=== PATIENT | female | born 1940 | race Caucasian/White ===

== ENCOUNTER 2017-07-18 16:38 | Inpatient (IN) | payer OTHER, MEDICARE ==
[2017-07-18] VITALS (11 sets, daily range): BP systolic 118–136; BP diastolic 58–85; PULSE 94–105; RESP 16–36; TEMP 98.3–98.7; O2SAT 88–100
[~2017-07-18] VITALS: Ht 162.6 cm; Wt 77.2 kg
[~2017-07-18 16:38] MED LIST: AMLO5TAB22 PO; AZIT250T74 PO; DUONI INH; LISI-363 PO; PRED10 PO; PROT40TA PO; SYMB80AE INH; Z.0.OXYGENDME NC
--- NOTE | 2017-07-18 16:44 | PD ---
HPI Chief Complaint: Respiratory Distress Time Seen by Provider: 16:44 Travel History International Travel<30 days: No Contact w/Intl Traveler<30days: No Traveled to known affect area: No History of Present Illness HPI 77-year-old female came to the emergency room with history of shortness of breath. Patient was in respiratory distress and was unable to give any significant history. Her saturation in triage was 86% on room air. Patient denied of any chest pain. She was tachycardic. When she was put on 100% nonrebreather oxygen was 98%. [facility] Past Medical History Narrative Medical List of her past medical, surgical, social and family history is reviewed from the nursing note. Arthritis: Yes Asthma: No Heart Rhythm Problems: No Cancer: No Cardiovascular Problems: Yes High Cholesterol: No Chest Pain: No Congestive Heart Failure: No COPD: Yes Diminished Hearing: No Endocrine: No Genitourinary: No Hypertension: Yes Immune Disorder: No Musculoskeletal: Yes Neurologic: No Psychiatric: No Reproductive: No Respiratory: Yes Sleep Apnea: Yes Menopausal: Yes Past Surgical History Abdominal Surgery: No Cardiac Surgery: No Ear Surgery: No Endocrine Surgery: No Eye Surgery: No Genitourinary Surgery: No Gynecologic Surgery: Yes (TUBAL IGATION) Oral Surgery: No Thoracic Surgery: No Social History Alcohol Use: No Tobacco Use: Yes Substance Use: No Allergies-Medications (Allergen,Severity, Reaction): Coded Allergies: No Known Allergies (Unverified Adverse Reaction, Unknown, 07/18/17) Comments No known drug allergies. Reported Meds & Prescriptions Reported Meds & Active Scripts Active Reported [O2] 2 Liter EACH NARE CONTINUOUS Symbicort Inh (Budesonide/Formoterol Fumarate) 160-4.5 Mcg/Act Aero 2 Puff INH Q12HR Ventolin Hfa 18 GM Inh (Albuterol Sulfate) 90 Mcg/Act Aer 2 Puff INH Q4H PRN Amlodipine (Amlodipine Besylate) 5 Mg Tab 5 Mg PO DAILY Lisinopril 20 Mg Tab 20 Mg PO DAILY Lasix (Furosemide) 20 Mg Tab 10 Mg PO DAILY Albuterol Neb (Albuterol Sulfate) 2.5 Mg/0.5 Ml Neb 2.5 Mg NEB Q6HR NEB Note: The Albuterol Sulfate Inhalation Solution is concentrated and must be diluted. Read complete instructions carefully before using. Narrative Medication List of her home medications reviewed from the nursing note. Review of Systems Except as stated in HPI: all other systems reviewed are Neg Respiratory: Positive: Shortness of Breath Physical Exam Narrative GENERAL: Awake, alert, moderate to significant respiratory distress SKIN: Focused skin assessment warm/dry. HEAD: Atraumatic. Normocephalic. EYES: Pupils equal and round. No scleral icterus. No injection or drainage. ENT: No nasal bleeding or discharge. Mucous membranes pink and moist. NECK: Trachea midline. No JVD. CARDIOVASCULAR: Regular rate and rhythm. No murmur appreciated. RESPIRATORY: Diminished air entry bilaterally, accessory muscles used GASTROINTESTINAL: Abdomen soft, non-tender, nondistended. Hepatic and splenic margins not palpable. MUSCULOSKELETAL: No obvious deformities. No clubbing. No cyanosis. 2+ pedal edema NEUROLOGICAL: Awake and alert. No obvious cranial nerve deficits. Motor grossly within normal limits. Normal speech. PSYCHIATRIC: Appropriate mood and affect; insight and judgment normal. Data Data Last Documented VS Vital Signs Date Time Temp Pulse Resp B/P (MAP) Pulse Ox O2 Delivery O2 Flow Rate FiO2 07/18/17 17:30 99 30 07/18/17 17:29 BiPAP 07/18/17 17:20 103 24 120/85 (97) 07/18/17 16:45 2.00 07/18/17 16:45 98.3 Orders Orders Complete Blood Count With Diff (07/18/17 16:47) Basic Metabolic Panel (Bmp) (07/18/17 16:47) B-Type Natriuretic Peptide (07/18/17 16:47) Prothrombin Time / Inr (Pt) (07/18/17 16:47) Ckmb (Isoenzyme) Profile (07/18/17 16:47) Troponin I (07/18/17 16:47) Arterial Blood Gas (Abg) (07/18/17 16:47) Urinalysis - C+S If Indicated (07/18/17 16:47) Blood Culture (07/18/17 16:47) Iv Access Insert/Monitor (07/18/17 16:47) Ecg Monitoring (07/18/17 16:47) Oximetry (07/18/17 16:47) Oxygen Administration (07/18/17 16:47) Chest, Single Ap (07/18/17 16:47) Sodium Chloride 0.9% Flush (Ns Flush) (07/18/17 17:00) Albuterol-Ipratropium Neb (Duoneb Neb) (07/18/17 17:00) Furosemide Inj (Lasix Inj) (07/18/17 17:00) Resp Bipap / Cpap Non Invas Vt (07/18/17 16:47) CKMB (07/18/17 16:45) CKMB% (07/18/17 16:45) Methylprednisolone So Succ Inj (Solumedr (07/18/17 18:00) Albuterol Neb (Albuterol Neb) (07/18/17 18:00) Admit Order (Ed Use Only) (07/18/17 17:56) Labs Laboratory Tests Test 07/18/17 16:45 07/18/17 17:20 07/18/17 17:58 White Blood Count 8.3 TH/MM3 Red Blood Count 3.85 MIL/MM3 Hemoglobin 11.0 GM/DL Hematocrit 34.5 % Mean Corpuscular Volume 89.7 FL Mean Corpuscular Hemoglobin 28.5 PG Mean Corpuscular Hemoglobin Concent 31.8 % Red Cell Distribution Width 13.1 % Platelet Count 410 TH/MM3 Mean Platelet Volume 7.5 FL Neutrophils (%) (Auto) 67.2 % Lymphocytes (%) (Auto) 18.9 % Monocytes (%) (Auto) 8.9 % Eosinophils (%) (Auto) 3.9 % Basophils (%) (Auto) 1.1 % Neutrophils # (Auto) 5.6 TH/MM3 Lymphocytes # (Auto) 1.6 TH/MM3 Monocytes # (Auto) 0.7 TH/MM3 Eosinophils # (Auto) 0.3 TH/MM3 Basophils # (Auto) 0.1 TH/MM3 CBC Comment DIFF FINAL Differential Comment Prothrombin Time 10.0 SEC Prothromb Time International Ratio 0.9 RATIO Blood Urea Nitrogen 15 MG/DL Creatinine 1.00 MG/DL Random Glucose 90 MG/DL Calcium Level 8.4 MG/DL Sodium Level 144 MEQ/L Potassium Level 3.6 MEQ/L Chloride Level 102 MEQ/L Carbon Dioxide Level 36.9 MEQ/L Anion Gap 5 MEQ/L Estimat Glomerular Filtration Rate 54 ML/MIN Total Creatine Kinase 146 U/L Creatine Kinase MB 3.1 NG/ML Troponin I 0.02 NG/ML B-Type Natriuretic Peptide 96 PG/ML Blood Gas Puncture Site RT RADIAL Blood Gas Patient Temperature 98.6 Blood Gas HCO3 37 mmol/L Blood Gas Base Excess 11.0 mmol/L Blood Gas Oxygen Saturation 96 % Arterial Blood pH 7.35 Arterial Blood Partial Pressure CO2 69 mmHG Arterial Blood Partial Pressure O2 144 mmHG Arterial Blood Oxygen Content 14.4 Vol % Arterial Blood Carboxyhemoglobin 2.4 % Arterial Blood Methemoglobin 1.1 % Blood Gas Hemoglobin 10.5 G/DL Oxygen Delivery Device BIPAP Blood Gas Ventilator Setting IPAP 14/EPAP 7 Blood Gas Inspired Oxygen 40 % MDM Medical Decision Making Medical Screen Exam Complete: Yes Emergency Medical Condition: Yes Medical Record Reviewed: Yes Interpretation(s) Twelve-lead EKG was reviewed by me. Normal sinus rhythm, normal axis, nonspecific ST-T wave changes, tachycardia. Heart rate of 107 bpm. Differential Diagnosis CHF exacerbation, pulmonary edema, COPD exacerbation Narrative Course 5:51 PM patient was given 60 mg of IV Lasix given the clinical assessment and I thought she was congestive heart failure. Blood test results of come back and the BNP is not elevated. However patient does have significant pedal edema. I started her on BiPAP and gave HER-2 duo nebs. Patient was doing fine until she had to get up and go to the potty to urinate. That made her short of breath. I have ordered 2 more albuterol nebulizer. Patient is also given a Solu-Medrol bolus. I've admitted her to the hospitalist and ICU. Critical Care Narrative Aggregate critical care time was 45 minutes. Time to perform other separately billable procedures was not included in the critical care time. My time did not include minutes spent treating any other patients simultaneously or on activities that did not directly contribute to the patient's treatment. The services I provided to this patient were to treat and/or prevent clinically significant deterioration that could result in: Respiratory distress, hypoxia, COPD exacerbation, CHF I provided critical care services requiring my management, as noted below: Chart data review, documentation time, medication orders and management, vital sign assessments/reviewing monitor data, ordering and reviewing lab tests, ordering and interpreting/reviewing x-rays and diagnostic studies, care of the patient and discussion of the patient with the admitting physicians. Diagnosis Primary Impression: Respiratory distress Additional Impressions: COPD exacerbation CHF (congestive heart failure) Qualified Codes: I50.9 - Heart failure, unspecified Hypoxia Admitting Information Admitting Physician Requests: Admit Amy Lopez MD Jul 18, 2017 16:44
[2017-07-18] MEDS: RESP: ALBUTEROL 2.5 MG/IPRATROPIUM 0.5 MG NEB (SCH) INH ×2 (16:57→16:58)
[2017-07-18] MEDS ORDERED: FUROSEMIDE 100 MG/10 ML VIAL IVP ONE (17:00)
[2017-07-18 17:14] LABS: AUTOMATED NEUTROPHIL # 5.6 TH/MM3 (1.8-7.7); BASOPHIL # 0.1 TH/MM3 (0-0.2); BASOPHIL % 1.1 % (0.0-2.0); EOSINOPHIL # 0.3 TH/MM3 (0-0.4); EOSINOPHIL % 3.9 % (0.0-4.0); HEMATOCRIT 34.5 % (35.0-46.0); HEMO FLAGS DIFF FINAL; LYMPH % 18.9 % (9.0-44.0); LYMPHOCYTE # 1.6 TH/MM3 (1.0-4.8); MEAN CELL VOLUME 89.7 FL (80.0-100.0); MEAN CORPUSCULAR HEMOGLOBIN 28.5 PG (27.0-34.0); MEAN CORPUSCULAR HGB CONC 31.8 % (32.0-36.0); MONO % 8.9 % (0.0-8.0); NEUT % 67.2 % (16.0-70.0); PLATELET COUNT 410 TH/MM3 (150-450); RED BLOOD COUNT 3.85 MIL/MM3 (4.00-5.30); RED CELL DISTRIBUTION WIDTH 13.1 % (11.6-17.2); WHITE BLOOD COUNT 8.3 TH/MM3 (4.0-11.0)
--- NOTE | 2017-07-18 17:14 | RADRPT ---
EXAM DATE/TIME: 07/18/2017 17:02 [facility] COMPARISON: CHEST SINGLE AP, April 13, 2015, 21:34. INDICATIONS : Shortness of breath. MEDICAL HISTORY : Hypertension. Chronic obstructive pulmonary disease. SURGICAL HISTORY : None. ENCOUNTER: Initial ACUITY: 1 day PAIN SCORE: 0/10 LOCATION: Bilateral chest FINDINGS: Frontal and lateral views of the chest demonstrate a normal-sized cardiac silhouette with calcificati on of the aorta. No effusion, consolidation, or pneumothorax is appreciated. There is opacity and int erface overlying the right lower lung zone. Bones and soft tissues demonstrate no acute finding. EKG lines and tubing overlie the patient. CONCLUSION: No acute cardiopulmonary abnormality is identified. There is an opacity with an usual interface overl sade the right lower lung zone. Given the appearance I suspect it is either artifactual or something overlying the patient. Suggest attention to this area at followup chest x-ray. Mateusz Reynoso MD on July 18, 2017 at 17:11 Board Certified Radiologist. This report was verified electronically.
[2017-07-18 17:22] LABS: CHLORIDE 102 MEQ/L (98-107); POTASSIUM 3.6 MEQ/L (3.5-5.1); SODIUM (NA) 144 MEQ/L (136-145)
[2017-07-18 17:24] LABS: INTERNATIONAL NORMALIZED RATIO 0.9 RATIO
[2017-07-18 17:25] LABS: ANION GAP 5 MEQ/L (5-15); BICARBONATE 36.9 MEQ/L (21.0-32.0); BLOOD UREA NITROGEN 15 MG/DL (7-18)
[2017-07-18 17:26] LABS: BLOOD GAS CARBOXYHEMOGLOBIN 2.4 % (0-4); BLOOD GAS HCO3 37 mmol/L (22-26); BLOOD GAS METHEMOGLOBIN 1.1 % (0-2); BLOOD GAS O2 HGB SATURATION 96 % (90-100); BLOOD GAS OXYGEN CONTENT 14.4 Vol % (12.0-20.0); BLOOD GAS PCO2 69 mmHG (38-42); BLOOD GAS PO2 144 mmHG (61-120); BLOOD GAS TOTAL HGB 10.5 G/DL (12.0-16.0); TEMP CORR TO 98.6
[2017-07-18 17:27] LABS: CRITICAL VALUE YES; DRAW SITE RT RADIAL; FIO2 40 %; NUMBER OF ARTERIAL PUNCTURES 1; OXYGEN DEVICE BIPAP; STAT NO; ULNAR PULSE PRESENT; VENT SETTINGS IPAP 14/EPAP 7
[2017-07-18] MEDS ORDERED: AMLO5TAB2 PO (17:27)
[2017-07-18] MEDS ORDERED: VENTAER INH (17:27)
[2017-07-18] MEDS ORDERED: LISI-515 PO (17:27)
[2017-07-18] MEDS ORDERED: SYMB160A INH (17:27)
[2017-07-18] MEDS ORDERED: FURO1TAB62 PO (17:27)
[2017-07-18] MEDS ORDERED: ALBU.5I NEB (17:27)
[2017-07-18] MEDS ORDERED: O2 EACH NARE (17:27)
[2017-07-18 17:28] LABS: GLOMERULAR FILTRATION RATE 54 ML/MIN (>89)
[2017-07-18 17:32] LABS: CREATINE KINASE 146 U/L (26-192)
[2017-07-18 17:44] LABS: CKMB 3.1 NG/ML (0.5-3.6)
[2017-07-18] MEDS: RESP: ALBUTEROL 2.5 MG/3 ML NEB (SCH) INH ×2 (17:59→18:00)
[2017-07-18] MEDS ORDERED: methylPREDNISolone SOD SUCC 125 MG/2 ML VIAL IV PUSH ONE (18:00)
[2017-07-18 18:06] LABS: BLOOD, URINE SMALL (NEG); GLUCOSE,URINE NEG (NEG); KETONE, URINE NEG (NEG); NITRITE,URINE NEG (NEG)
[2017-07-18 18:19] LABS: METHOD OF COLLECTION CLEAN CATCH; URINE COLOR YELLOW (YELLW/STRAW)
[2017-07-18 18:21] LABS: COMMENT (UR) CULT NOT INDICATED; CULTURE IF INDICATED CULT NOT INDICATED; SQUAMOUS EPITHELIAL CELL URINE 0-5 /hpf (0-5)
[2017-07-18] MEDS ORDERED: RESP: ALBUTEROL 2.5 MG/3 ML NEB (PRN) NEB (18:30)
--- NOTE | 2017-07-18 18:42 | HHI.HP ---
[facility] Service [facility] Primary Care Physician Chad Willingham MD Admission Diagnosis respiratory distress, CHF exacerbation, COPD exacerbation Diagnoses: Chief Complaint: Shortness of breath per ER Travel History International Travel<30 Days: No Contact w/Intl Traveler <30 Da: No Traveled to Known Affected Are: No History of Present Illness History is limited as the patient is on BiPAP and has obvious dyspnea. Limited history from son. Patient apparently was in her usual state of health until about a few days ago when she began developing a gradual onset of shortness of breath. Her son brought her to the ER tonight because he was told by the patient's sister that she is "ready to come to the hospital." She does have chronic lower extremity edema which she says admits by nodding stating that it did get worse recently and her legs which are swollen now has never been this swollen in the past. Patient is actually able to verbalize a little bit and says that she had some chest tightness but denies any frankei chest pain or any frankie fevers. No nausea vomiting or diarrhea reported. Patient reports being compliant with all of her medications. She denies any diagnosis of heart failure but does admit to having COPD. she does follow-up with pulmonology, wears 2L of O2 at home.. Review of Systems Except as stated in HPI: all other systems reviewed are Neg Past Family Social History Past Medical History COPD, sleep apnea Past Surgical History tubal ligation Allergies: Coded Allergies: No Known Allergies (Unverified Allergy, Unknown, 07/18/17) Family History none per patient Social History lifelong tobacco use no illicit drug use Physical Exam Vital Signs Vital Signs Date Time Temp Pulse Resp B/P (MAP) Pulse Ox O2 Delivery O2 Flow Rate FiO2 07/18/17 18:28 98.3 97 24 134/62 (86) 94 BiPAP 07/18/17 18:12 97 24 134/62 (86) 94 BiPAP 07/18/17 17:30 99 30 07/18/17 17:29 BiPAP 07/18/17 17:20 103 24 120/85 (97) BiPAP 07/18/17 17:02 100 40 07/18/17 17:00 BiPAP 07/18/17 16:45 105 32 88 Nasal Cannula 2.00 07/18/17 16:45 88 Nasal Cannula 2.00 07/18/17 16:45 98.3 105 32 136/69 (91) 88 07/18/17 16:45 99 Non-Rebreather 15.00 Physical Exam VS: Afebrile GENERAL: Elderly white female, in acute distress, on BiPAP SKIN: Warm and dry. EYES: No scleral icterus. No injection or drainage. ENT: Unable to fully examine, on BiPAP CARDIOVASCULAR: Regular rate and rhythm. no murmurs RESPIRATORY: On BiPAP, has clear breath sounds that are otherwise diminished as she is on BiPAP, unable to appreciate any crackles or [place] washes on BiPAP GASTROINTESTINAL: Abdomen soft, non-tender, nondistended. Hepatic and splenic margins not palpable. Extremities: No clubbing or cyanosis noted but does have +3 severe edema in bilateral lower extremities MUSCULOSKELETAL: As 5 out of 5 proximal upper and lower proximal ext strength bilaterally with adequate muscle bulk and tone NEUROLOGICAL: Awake and alert. Able to fully examine cranial nerves given she is on BiPAP, no facial droop appreciated otherwise PSYCHIATRIC: Appropriate mood and affect; insight and judgment normal. Laboratory Laboratory Tests Test 07/18/17 16:45 07/18/17 17:20 07/18/17 17:58 White Blood Count 8.3 Red Blood Count 3.85 Hemoglobin 11.0 Hematocrit 34.5 Mean Corpuscular Volume 89.7 Mean Corpuscular Hemoglobin 28.5 Mean Corpuscular Hemoglobin Concent 31.8 Red Cell Distribution Width 13.1 Platelet Count 410 Mean Platelet Volume 7.5 Neutrophils (%) (Auto) 67.2 Lymphocytes (%) (Auto) 18.9 Monocytes (%) (Auto) 8.9 Eosinophils (%) (Auto) 3.9 Basophils (%) (Auto) 1.1 Neutrophils # (Auto) 5.6 Lymphocytes # (Auto) 1.6 Monocytes # (Auto) 0.7 Eosinophils # (Auto) 0.3 Basophils # (Auto) 0.1 CBC Comment DIFF FINAL Differential Comment Prothrombin Time 10.0 Prothromb Time International Ratio 0.9 Blood Urea Nitrogen 15 Creatinine 1.00 Random Glucose 90 Calcium Level 8.4 Sodium Level 144 Potassium Level 3.6 Chloride Level 102 Carbon Dioxide Level 36.9 Anion Gap 5 Estimat Glomerular Filtration Rate 54 Total Creatine Kinase 146 Creatine Kinase MB 3.1 Troponin I 0.02 B-Type Natriuretic Peptide 96 Blood Gas Puncture Site RT RADIAL Blood Gas Patient Temperature 98.6 Blood Gas HCO3 37 Blood Gas Base Excess 11.0 Blood Gas Oxygen Saturation 96 Arterial Blood pH 7.35 Arterial Blood Partial Pressure CO2 69 Arterial Blood Partial Pressure O2 144 Arterial Blood Oxygen Content 14.4 Arterial Blood Carboxyhemoglobin 2.4 Arterial Blood Methemoglobin 1.1 Blood Gas Hemoglobin 10.5 Oxygen Delivery Device BIPAP Blood Gas Ventilator Setting IPAP 14/EPAP 7 Blood Gas Inspired Oxygen 40 Urine Collection Type CLEAN CATCH Urine Color YELLOW Urine Turbidity CLEAR Urine pH 6.0 Urine Specific Wilson 1.007 Urine Protein NEG Urine Glucose (UA) NEG Urine Ketones NEG Urine Occult Blood SMALL Urine Nitrite NEG Urine Bilirubin NEG Urine Leukocyte Esterase NEG Urine RBC 4-9 Urine Squamous Epithelial Cells 0-5 Microscopic Urinalysis Comment CULT NOT INDICATED Urine Collection Time 17:58 Date/Time Source Procedure Growth Status 07/18/17 17:00 Blood Peripheral Aerobic Blood Culture Pending Received 07/18/17 17:00 Blood Peripheral Anaerobic Blood Culture Pending Received Result Diagram: 07/18/17 1645 07/18/17 1645 Caprini VTE Risk Assessment Caprini VTE Risk Assessment: Mod/High Risk (score >= 2) Caprini Risk Assessment Model Point Value = 1 Point Value = 2 Point Value = 3 Point Value = 5 Age 41-60 Minor surgery BMI > 25 kg/m2 Swollen legs Varicose veins or History of unexplained or recurrent spontaneous Oral contraceptives or hormone replacement Sepsis (< 1 month) Serious lung disease, including pneumonia (< 1 month) Abnormal pulmonary function Acute myocardial infarction Congestive heart failure (< 1 month) History of inflammatory bowel disease Medical patient at bed rest Age 61-74 Arthroscopic surgery Major open surgery (> 45 min) Laparoscopic surgery (> 45 min) Malignancy Confined to bed (> 72 hours) Immobilizing plaster cast Central venous access Age >= 75 History of VTE Family history of VTE Factor V Leiden Prothrombin [id number] Lupus anticoagulant Anticardiolipin antibodies Elevated serum homocysteine Heparin-induced thrombocytopenia Other congenital or acquired thrombophilia Stroke (< 1 month) Elective arthroplasty Hip, pelvis, or leg fracture Acute spinal cord injury (< 1 month) Prophylaxis Regimen Total Risk Factor Score Risk Level Prophylaxis Regimen 0-1 Low Early ambulation 2 Moderate Order ONE of the following: *Sequential Compression Device (SCD) *Heparin 5000 units SQ BID 3-4 Higher Order ONE of the following medications: *Heparin 5000 units SQ TID *Enoxaparin/Lovenox 40 mg SQ daily (WT < 150 kg, CrCl > 30 mL/min) *Enoxaparin/Lovenox 30 mg SQ daily (WT < 150 kg, CrCl > 10-29 mL/min) *Enoxaparin/Lovenox 30 mg SQ BID (WT < 150 kg, CrCl > 30 mL/min) AND/OR *Sequential Compression Device (SCD) 5 or more Highest Order ONE of the following medications: *Heparin 5000 units SQ TID (Preferred with Epidurals) *Enoxaparin/Lovenox 40 mg SQ daily (WT < 150 kg, CrCl > 30 mL/min) *Enoxaparin/Lovenox 30 mg SQ daily (WT < 150 kg, CrCl > 10-29 mL/min) *Enoxaparin/Lovenox 30 mg SQ BID (WT < 150 kg, CrCl > 30 mL/min) AND *Sequential Compression Device (SCD) Assessment and Plan Assessment and Plan Acute Resp Failure with hypercapnia and hypoxia - Patient did have initial Sats of 86% on room air in the emergency room, after being transitioned to BiPAP patient had ABG performed which showed improvement in by mouth to as it was 140 whereas PCO2 showed retention close to 70 - Suspect this could be a mixed picture of COPD exacerbation, and possible new onset acute systolic heart failure or both or a cor pulmonale exacerbation - Continue with diuresis - BiPAP with settings adjusted as appropriate - ABG repeat now and ABG in a.m. - I independently reviewed the chest x-ray which shows mild diffuse pulmonary edema with the unusual opacity noted in the right lower lobe that radiology read is mentioning. Given the severity of her picture and this unusual opacity it is worth getting a CT pulmonary angiogram. Discussed case with respiratory therapy who states that she will try to get the patient to lay flat for the CT but is not sure, otherwise we will attempt this in the a.m. when the patient hopefully is in a better clinical status. Meanwhile we will dose her with weight-based Lovenox to cover her empirically for the time being - fall precautions - echocardiogram in AM - fallon richter albuterol - fever or historical signs indicating infection - will hold off on abx until fever spike occurs, can f/u blood cx's drawn in ED - BMP in AM HTN - continue liana-I and amlodipine, stable Discussed care with son, all questions answered. Admitting to ICU for close monitoring. Lovenox Famotidine Physician Certification 2 Midnight Certification Type: Admission for Inpatient Services Order for Inpatient Services The services are ordered in accordance with Medicare regulations or non- Medicare payer requirements, as applicable. In the case of services not specified as inpatient-only, they are appropriately provided as inpatient services in accordance with the 2-midnight benchmark. Estimated LOS (days): 3 3 days is the estimated time the patient will need to remain in the hospital, assuming treatment plan goals are met and no additional complications. Post-Hospital Plan: Not yet determined Al Moreland MD Jul 18, 2017 18:42
[2017-07-18] MEDS: RESP: ALBUTEROL 2.5 MG/IPRATROPIUM 0.5 MG NEB (SCH) NEB ×2 (19:18→23:10)
[2017-07-18 19:31] LABS: BLOOD GAS CARBOXYHEMOGLOBIN 2.3 % (0-4); BLOOD GAS HCO3 35 mmol/L (22-26); BLOOD GAS METHEMOGLOBIN 1.2 % (0-2); BLOOD GAS O2 HGB SATURATION 94 % (90-100); BLOOD GAS OXYGEN CONTENT 14.7 Vol % (12.0-20.0); BLOOD GAS PCO2 61 mmHG (38-42); BLOOD GAS PO2 83 mmHG (61-120); BLOOD GAS TOTAL HGB 11.1 G/DL (12.0-16.0); TEMP CORR TO 98.6
[2017-07-18 19:33] LABS: CRITICAL VALUE YES; DRAW SITE RT RADIAL; FIO2 30 %; NUMBER OF ARTERIAL PUNCTURES 1; OXYGEN DEVICE BIPAP; STAT NO; ULNAR PULSE Y; VENT SETTINGS IPAP14/EPAP7
[2017-07-18] MEDS: ENOXAPARIN SODIUM 40 MG/0.4 ML SYRINGE SQ SCH (19:36)
[2017-07-18] MEDS: FAMOTIDINE 20 MG/2 ML VIAL IV PUSH SCH (19:36)
[2017-07-18] MEDS: methylPREDNISolone SOD SUCC 125 MG/2 ML VIAL IV PUSH SCH (21:48)
[2017-07-18] MEDS: BUDESONIDE-FORMOTEROL 160/4.5 MCG INHALER INH SCH (21:49)
[2017-07-18] MEDS: FUROSEMIDE 40 MG/4 ML VIAL IV PUSH SCH (21:49)
[2017-07-19] VITALS (24 sets, daily range): BP systolic 93–148; BP diastolic 47–87; PULSE 80–118; RESP 21–43; TEMP 97.3–99.6; O2SAT 90–99
[2017-07-19] MEDS: RESP: ALBUTEROL 2.5 MG/IPRATROPIUM 0.5 MG NEB (SCH) NEB ×6 (04:06→23:20)
[2017-07-19 04:46] LABS: AUTOMATED NEUTROPHIL # 5.3 TH/MM3 (1.8-7.7); BASOPHIL % 0.4 % (0.0-2.0); EOSINOPHIL % 0.1 % (0.0-4.0); HEMATOCRIT 30.3 % (35.0-46.0); HEMO FLAGS DIFF FINAL; LYMPHOCYTE # 0.3 TH/MM3 (1.0-4.8); MEAN CELL VOLUME 88.6 FL (80.0-100.0); MEAN CORPUSCULAR HEMOGLOBIN 29.3 PG (27.0-34.0); MEAN CORPUSCULAR HGB CONC 33.1 % (32.0-36.0); MONO % 0.6 % (0.0-8.0); NEUT % 93.9 % (16.0-70.0); PLATELET COUNT 317 TH/MM3 (150-450); RED BLOOD COUNT 3.42 MIL/MM3 (4.00-5.30); RED CELL DISTRIBUTION WIDTH 13.3 % (11.6-17.2); WHITE BLOOD COUNT 5.6 TH/MM3 (4.0-11.0)
[2017-07-19] MEDS: methylPREDNISolone SOD SUCC 125 MG/2 ML VIAL IV PUSH SCH ×3 (05:03→22:23)
[2017-07-19 05:08] LABS: POTASSIUM 3.5 MEQ/L (3.5-5.1)
[2017-07-19 05:12] LABS: BICARBONATE 36.5 MEQ/L (21.0-32.0)
[2017-07-19] MEDS ORDERED: CHLORHEXIDINE GLUCONATE 2 % 1 PACK (2 CLOTHS)(extra cloths) TOPICAL PRN (05:30)
[2017-07-19 05:39] LABS: BLOOD GAS BASE EXCESS 11.9 mmol/L (-2-2); BLOOD GAS CARBOXYHEMOGLOBIN 1.6 % (0-4); BLOOD GAS HCO3 37 mmol/L (22-26); BLOOD GAS METHEMOGLOBIN 1.3 % (0-2); BLOOD GAS O2 HGB SATURATION 93 % (90-100); BLOOD GAS OXYGEN CONTENT 13.2 Vol % (12.0-20.0); BLOOD GAS PCO2 57 mmHg (38-42); BLOOD GAS PO2 75 mmHg (61-120)
[2017-07-19 05:40] LABS: CRITICAL VALUE YES; DRAW SITE RT RADIAL; FIO2 30 %; NUMBER OF ARTERIAL PUNCTURES 1; OXYGEN DEVICE BIPAP; STAT NO; ULNAR PULSE Y; VENT SETTINGS IPAP14/EPAP7
[2017-07-19] MEDS: FAMOTIDINE 20 MG/2 ML VIAL IV PUSH SCH ×2 (09:26→22:10)
[2017-07-19] MEDS: FUROSEMIDE 40 MG/4 ML VIAL IV PUSH SCH ×2 (09:26→22:22)
[2017-07-19] MEDS: amLODIPine BESYLATE 5 MG TAB PO SCH (09:27)
[2017-07-19] MEDS: LISINOPRIL 20 MG TAB PO SCH (09:27)
[2017-07-19] MEDS: BUDESONIDE-FORMOTEROL 160/4.5 MCG INHALER INH SCH ×2 (09:35→22:23)
--- NOTE | 2017-07-19 12:27 | HHI.PR ---
Subjective Remarks Patient hadn't been transitioned from BiPAP to nasal cannula. However nursing and respiratory therapy state that she gets very labored with just minimal movements and exertions including simply just trying to get a bedpan underneath her at which point she begins pursing her lips with acute worsening dyspnea when this happens. Son thinks that her breathing is much better than yesterday. After undergoing urination on the bedpan the patient is asking for the BiPAP back on - states that it helps her more than the nasal cannula Objective Vital Signs Date Time Temp Pulse Resp B/P (MAP) Pulse Ox O2 Delivery O2 Flow Rate FiO2 07/19/17 11:19 92 Nasal Cannula 2.00 07/19/17 08:04 96 30 07/19/17 08:00 112 07/19/17 08:00 98.9 112 33 96 07/19/17 04:05 96 30 07/19/17 04:00 94 07/19/17 04:00 98.7 94 25 93/47 (62) 96 07/19/17 01:55 96 30 07/19/17 00:00 97.7 112 33 106/52 (70) 98 07/19/17 00:00 112 07/18/17 22:45 96 30 07/18/17 21:00 98.7 94 36 119/78 (92) 96 07/18/17 20:30 94 07/18/17 19:38 98 16 118/58 (78) 96 BiPAP 07/18/17 19:20 96 30 07/18/17 18:28 98.3 97 24 134/62 (86) 94 BiPAP 07/18/17 18:12 97 24 134/62 (86) 94 BiPAP 07/18/17 17:30 99 30 07/18/17 17:29 BiPAP 07/18/17 17:20 103 24 120/85 (97) BiPAP 07/18/17 17:02 100 40 07/18/17 17:00 BiPAP 07/18/17 16:45 105 32 88 Nasal Cannula 2.00 07/18/17 16:45 88 Nasal Cannula 2.00 07/18/17 16:45 98.3 105 32 136/69 (91) 88 07/18/17 16:45 99 Non-Rebreather 15.00 I/O 11/12/17 11/08/2207/18/17 07/19/17 07/19/17 07/19/17 07:00 15:00 23:00 07:00 15:00 23:00 Output Total 300 ml 1750 ml 400 ml Balance -300 ml -1750 ml -400 ml Output Urine Total 300 ml 1750 ml 400 ml Result Diagram: 07/19/17 0417 07/19/17 0417 Objective Remarks Decreased breath sounds bilaterally still with expiratory wheezing, on nasal cannula pursing her lips. Very mild crackles in bilateral lower bases A/P Assessment and Plan Acute Resp Failure with hypercapnia and hypoxia - Suspect this could be a mixed picture of COPD exacerbation, and possible new onset acute systolic heart failure or both or a cor pulmonale exacerbation - Still fluctuating between nasal cannula and BiPAP, resume BiPAP for now given that she is acutely still labored after my examination - ABGs show improvement since ER - Continue diuresis; nursing notes that the patient is retaining with about 500 MLS, - echocardiogram pending Urinary retention - Post void residual has about half a liter, will place catheter in for now - Start Flomax and minimize any and all anticholinergics HTN - continue liana-I and amlodipine, stable Discussed care with son and patient, all questions answered. Discussed case with patient's loan review analyst, will see patient. Lovenox FamotidAl Almendarez MD Jul 19, 2017 12:27
--- NOTE | 2017-07-19 14:02 | RADRPT ---
EXAM DATE/TIME: 07/19/2017 13:31 [facility] COMPARISON: CHEST SINGLE AP, July 18, 2017, 17:02. INDICATIONS : Short of breath MEDICAL HISTORY : Hypertension. Chronic obstructive pulmonary disease SURGICAL HISTORY : None. ENCOUNTER: Subsequent ACUITY: 2 days PAIN SCORE: 0/10 LOCATION: Bilateral chest FINDINGS: There is mild interstitial edema present. The heart is minimally enlarged. Moderate hyperinflation is present. There is no pneumothorax or consolidation. CONCLUSION: Mild interstitial edema. Jermaine Joyner MD FACR on July 19, 2017 at 14:00 Board Certified Radiologist. This report was verified electronically.
--- NOTE | 2017-07-19 17:35 | ECHRPT ---
Indication: SHORTNESS OF BREATH, COPD CONCLUSIONS Normal left ventricular size. Wall thickness is normal. The left ventricular systolic function is grossly normal on limited imaging. The right ventricle is mildly to moderately dilated. Aortic valve sclerosis is present. BP: 93 / 47 HR: 94 Rhythm: Sinus MEASUREMENTS (Male / Female) Normal Values Technical Quality:Technically difficult study 2D ECHO LVOT Diameter 2.1 cm Aortic Root Diameter 2.4 cm M-MODE AV Cusp Separation MM 1.6 cm DOPPLER AV Peak Velocity 152.0 cm/s AV Peak Gradient 9.2 mmHg AV Mean Gradient 5.0 mmHg AV Velocity Time Integral 26.7 cm LVOT Peak Velocity 103.0 cm/s LVOT Peak Gradient 4.2 mmHg LVOT Velocity Time Integral 18.6 cm LVOT Cardiac Index 3215.4 cm/minm AV Area Cont Eq vti 2.4 cm AV Area Cont Eq pk 2.3 cm Mitral E Point Velocity 75.7 cm/s Mitral A Point Velocity 114.0 cm/s Mitral E to A Ratio 0.7 LV E' Lateral Velocity 9.9 cm/s Mitral E to LV E' Lateral Ratio 7.6 LV E' Septal Velocity 6.5 cm/s Mitral E to LV E' Septal Ratio 11.6 FINDINGS LEFT VENTRICLE Normal left ventricular size. Wall thickness is normal. The left ventricular systolic function is grossly normal on limited imaging. RIGHT VENTRICLE The right ventricle is mildly to moderately dilated. LEFT ATRIUM The left atrial size is normal. RIGHT ATRIUM The right atrial size is normal. ATRIAL SEPTUM Normal atrial septal thickness without atrial level shunting by limited color doppler interrogation. AORTA The aortic root and proximal ascending aorta are normal in size on limited imaging. MITRAL VALVE Structurally normal mitral valve. No mitral valve stenosis or regurgitation. AORTIC VALVE Aortic valve sclerosis is present. TRICUSPID VALVE Structurally normal tricuspid valve. No tricuspid valve stenosis or regurgitation. PULMONARY VALVE The pulmonary valve is not well visualized. VESSELS The inferior vena cava is normal in size. PERICARDIUM No pericardial effusion. Rosa Shah MD, FACC (Electronically Signed) Final Date:19 July 2017 17:34
[2017-07-19] MEDS ORDERED: AZITHROMYCIN INJ 250 MG in SODIUM CHLOR 0.9% 250 ML INJ 250 ML IV SCH (18:00)
--- NOTE | 2017-07-19 19:37 | EKG ---
Date Performed: 07/18/2017 Time Performed: 16:46:38 PTAGE: 77 years EKG: SINUS TACHYCARDIA MINIMAL ST DEPRESSION ABNORMAL RHYTHM ECG PREVIOUS TRACING 04/13/2015 21.17 Since previous tracing, no significant change noted DOCTOR: Abdoul Polk Interpretating Date/Time 07/19/2017 19:36:24
--- NOTE | 2017-07-19 21:20 | MB ---
cc: FRANCISCO JOYCE DATE OF CONSULTATION 07/19/[address] Al Moreland REASON FOR CONSULTATION COPD exacerbation and renal insufficiency. HISTORY OF THE PRESENT ILLNESS Ms. Naqvi is a 77-year-old female with a longstanding history of COPD. She is oxygen dependent. She has not been feeling well for at least 2 weeks. He had cough and congestion, wheezing, feeling weak and tired. No fever or chills. No night sweats. No chest pain. Because of worsening of her symptoms her son brought her to the emergency room. She had a chest x-ray done which showed mild interstitial edema. Her blood gas showed pH 7.35, PCO2 of 69, pO2 144 on 40% BiPAP. She is now weaned down to nasal cannula but she tolerated nasal cannula well and now she is back on the BiPAP. Her CBC showed WBC count 5.6, hemoglobin 10, hematocrit 30.3 and platelet count 317. Sodium 145, potassium 3.5, chloride 98, CO2 36 BUN 17, creatinine 1.20. PAST MEDICAL HISTORY Significant for: 1. History of COPD. She is oxygen dependent. 2. Hypertension. 3. Osteoarthritis. 4. Chronic swelling in the leg. MEDICATIONS She is currently takin. Amlodipine 5 mg daily. 2. Lisinopril 20 mg a day. 3. Solu-Medrol 125 milligrams q.8h. 4. Lasix 40 mg twice a day. 5. Symbicort 160/4.5 two puffs twice a day. 6. Albuterol Atrovent nebulizer treatment. 7. Lovenox 40 mg a day. 8. Famotidine 10 mg q.12 h. ALLERGIES NO KNOWN DRUG ALLERGIES. SOCIAL HISTORY She has history of smoking in the past. No alcohol use. FAMILY HISTORY Noncontributory. REVIEW OF SYSTEMS She walks only short distance. No headache or dizziness.No DVT or pulmonary. PHYSICAL EXAMINATION GENERAL: Elderly female, short of breath on BiPAP. VITAL SIGNS: Blood pressure 148/87, heart rate 112, respiratory rate 20, temperature 99. HEENT: Pupils are equal and reactive to light. Oral mucosa, nasal mucosa normal. NECK: Supple. JVP not raised. CHEST: Air entry equal bilaterally. Has expiratory rhonchi. CARDIOVASCULAR: S1-S2 normal. ABDOMEN: Benign . EXTREMITIES: No edema. IMPRESSION 1. Hypercapnic respiratory failure. 2. COPD exacerbation. 3. Bronchitis. 4. Hypertension. PLAN She will be maintained on BiPap at nighttime and daytime as needed. Supplement her oxygen to keep saturation between 88-92%. Continue IV Solu-Medrol. Cont Aerosol nebs, Lovenox 40 mg a day. Further treatment will depend on the course in the hospital. Thank you Dr. Moreland for this consultation. MD PEYMAN Melgar/PATRICA /5:38 PM /9:03 PM LACI
[2017-07-19] MEDS: ENOXAPARIN SODIUM 40 MG/0.4 ML SYRINGE SQ SCH (22:11)
[2017-07-19] MEDS: TAMSULOSIN HCL 0.4 MG CAP PO SCH (22:11)
[2017-07-19] MEDS: AZITHROMYCIN INJ 250 MG in SODIUM CHLOR 0.9% 250 ML INJ 250 ML IV SCH (22:36)
[2017-07-20] VITALS (33 sets, daily range): BP systolic 75–114; BP diastolic 42–62; PULSE 78–118; RESP 14–40; TEMP 98–99; O2SAT 87–98
[2017-07-20] MEDS: RESP: ALBUTEROL 2.5 MG/IPRATROPIUM 0.5 MG NEB (SCH) NEB ×6 (03:44→23:48)
[2017-07-20] MEDS: CHLORHEXIDINE GLUCONATE 2 % 1 PACK (2 CLOTHS)(taper/protocol) TOPICAL SCH (04:00)
[2017-07-20 04:46] LABS: BICARBONATE 38.2 MEQ/L (21.0-32.0)
[2017-07-20] MEDS: methylPREDNISolone SOD SUCC 125 MG/2 ML VIAL IV PUSH SCH ×3 (07:33→20:44)
[2017-07-20] MEDS: SODIUM CHLORIDE 0.9% FLUSH 10 ML FLUSH IVF PRN (07:33)
[2017-07-20] MEDS: amLODIPine BESYLATE 5 MG TAB PO SCH (09:29)
[2017-07-20] MEDS: FUROSEMIDE 40 MG/4 ML VIAL IV PUSH SCH (09:29)
[2017-07-20] MEDS: LISINOPRIL 20 MG TAB PO SCH (09:30)
[2017-07-20] MEDS: FAMOTIDINE 20 MG/2 ML VIAL IV PUSH SCH ×2 (09:30→20:44)
[2017-07-20] MEDS ORDERED: POTASSIUM CHLORIDE 20 MEQ CONTROLLED RELEASE TAB PO ONE (10:00)
--- NOTE | 2017-07-20 10:28 | HHI.PR ---
Subjective Remarks Patient wore bipap last night, still has significant shortness of breath, worse with even minimal exertion. Objective Vitals Vital Signs Date Time Temp Pulse Resp B/P (MAP) Pulse Ox O2 Delivery O2 Flow Rate FiO2 07/20/17 07:12 94 30 07/20/17 07:00 104 18 99/50 (66) 95 07/20/17 06:00 110 23 114/59 (77) 95 07/20/17 05:08 93 30 07/20/17 05:06 114 28 91/59 (70) 92 07/20/17 05:00 93 Nasal Cannula 3.00 07/20/17 05:00 108 24 80/46 (57) 93 07/20/17 04:00 98.5 96 23 110/50 (70) 95 07/20/17 04:00 98 07/20/17 03:00 78 23 100/49 (66) 93 07/20/17 02:07 93 30 07/20/17 02:00 80 23 97/42 (60) 93 07/20/17 01:00 100 28 99/47 (64) 92 07/20/17 00:00 102 07/20/17 00:00 98.3 102 24 105/47 (66) 92 07/19/17 23:17 94 30 07/19/17 23:00 82 22 114/61 (78) 95 07/19/17 22:00 80 25 101/51 (68) 91 07/19/17 21:00 96 24 107/55 (72) 94 07/19/17 20:30 95 30 07/19/17 20:00 109 07/19/17 20:00 98.0 108 26 135/71 (92) 93 07/19/17 19:00 106 22 140/75 (96) 93 07/19/17 18:00 110 38 146/78 (100) 94 07/19/17 17:00 106 25 116/73 (87) 94 07/19/17 16:54 93 30 07/19/17 16:00 98.6 07/19/17 16:00 100 22 114/61 (78) 90 07/19/17 16:00 100 07/19/17 15:00 96 25 127/64 (85) 95 07/19/17 14:07 99 30 07/19/17 14:00 112 23 115/61 (79) 92 07/19/17 13:00 118 43 102/55 (71) 93 07/19/17 12:00 99.6 07/19/17 12:00 112 21 148/87 (107) 91 07/19/17 12:00 99.0 112 21 148/87 (107) 98 07/19/17 12:00 112 07/19/17 11:45 96 30 07/19/17 11:19 92 Nasal Cannula 2.00 I/O 07/19/17 07/19/17 07/19/17 07/20/17 07/20/17 07/20/17 07:00 15:00 23:00 07:00 15:00 23:00 Intake Total 700 ml 250 ml Output Total 1750 ml 450 ml 500 ml 675 ml Balance -1750 ml -450 ml 200 ml 250 ml -675 ml Intake Oral 700 ml IV Total 250 ml Output Urine Total 1750 ml 450 ml 500 ml 675 ml Bladder Scan Volume Amount 498 ml # Bowel Movements 0 0 Result Diagram: 07/19/1741607/20/17409 Objective Remarks GENERAL: Well-nourished, well-developed pleasant elderly CF patient. SKIN: Warm and dry. HEAD: Normocephalic. EYES: No scleral icterus. No injection or drainage. NECK: Supple, trachea midline. No JVD or lymphadenopathy. CARDIOVASCULAR: Regular rate and rhythm without murmurs, gallops, or rubs. RESPIRATORY: Pursed lip breathing, mild resp distress. Poor air exchange with prolonged exp phase, no wheezing. GASTROINTESTINAL: Abdomen soft, non-tender, nondistended. EXTREMITIES: No cyanosis, or edema. NEUROLOGICAL: Awake, alert, and oriented x 3. Non-focal. A/P Assessment and Plan Acute Resp Failure with hypercapnia and hypoxia - due to COPD exacerbation -ABG this morning now showing respiratory alkalosis as she is hyperventilating somewhat. However patient with mildly labored breathing this morning. We'll place BiPAP again. -Continue Solu-Medrol, DuoNeb scheduled, Symbicort -Pulmonology following/ Dr. Nugent -BNP was not significantly elevated, 2-D echocardiogram shows preserved ejection fraction, dilated right ventricle. She has some elevation in creatinine will discontinue Lasix. Urinary retention - Post void residual has about half a liter, continue Oswald catheter in for now , she additionally has significant exertional dyspnea -Continue Flomax and minimize any and all anticholinergics HTN -Blood pressure running low this morning will hold Norvasc and lisinopril. DVT prophylaxis with Lovenox 40 mg subcutaneous daily. Nargis Travis MD Jul 20, 2017 10:28
[2017-07-20 11:06] LABS: BLOOD GAS BASE EXCESS 16.2 mmol/L (-2-2); BLOOD GAS CARBOXYHEMOGLOBIN 1.3 % (0-4); BLOOD GAS HCO3 40 mmol/L (22-26); BLOOD GAS METHEMOGLOBIN 1.3 % (0-2); BLOOD GAS O2 HGB SATURATION 88 % (90-100); BLOOD GAS OXYGEN CONTENT 13.1 Vol % (12.0-20.0); BLOOD GAS PCO2 48 mmHg (38-42); BLOOD GAS PO2 55 mmHg (61-120); BLOOD GAS TOTAL HGB 10.5 G/DL (12.0-16.0); CRITICAL VALUE YES; OXYGEN DEVICE NASAL CANNULA
[2017-07-20 11:07] LABS: DRAW SITE RT RADIAL; LITER FLOW 3 L/M; NUMBER OF ARTERIAL PUNCTURES 1; STAT NO; ULNAR PULSE PRESENT
[2017-07-20] MEDS: BUDESONIDE-FORMOTEROL 160/4.5 MCG INHALER INH SCH ×2 (13:03→20:40)
--- NOTE | 2017-07-20 18:40 | HHI.PR ---
Subjective Remarks 77 YOWF with Hypercapnoic RF,COPD exac Used BIPAP at night and intermittantally during day time gets sob even on talking Purse lip breathing Objective Vital Signs Vital Signs Date Time Temp Pulse Resp B/P (MAP) Pulse Ox O2 Delivery O2 Flow Rate FiO2 07/20/17 10:59 93 30 07/20/17 07:12 94 30 07/20/17 07:00 104 18 99/50 (66) 95 07/20/17 06:00 110 23 114/59 (77) 95 07/20/17 05:08 93 30 07/20/17 05:06 114 28 91/59 (70) 92 07/20/17 05:00 93 Nasal Cannula 3.00 07/20/17 05:00 108 24 80/46 (57) 93 07/20/17 04:00 98.5 96 23 110/50 (70) 95 07/20/17 04:00 98 07/20/17 03:00 78 23 100/49 (66) 93 07/20/17 02:07 93 30 07/20/17 02:00 80 23 97/42 (60) 93 07/20/17 01:00 100 28 99/47 (64) 92 07/20/17 00:00 102 07/20/17 00:00 98.3 102 24 105/47 (66) 92 07/19/17 23:17 94 30 07/19/17 23:00 82 22 114/61 (78) 95 07/19/17 22:00 80 25 101/51 (68) 91 07/19/17 21:00 96 24 107/55 (72) 94 07/19/17 20:30 95 30 07/19/17 20:00 109 07/19/17 20:00 98.0 108 26 135/71 (92) 93 07/19/17 19:00 106 22 140/75 (96) 93 I/O 07/19/17 07/19/17 07/19/17 07/20/17 07/20/17 07/20/17 07:00 15:00 23:00 07:00 15:00 23:00 Intake Total 700 ml 250 ml Output Total 1750 ml 450 ml 500 ml 675 ml Balance -1750 ml -450 ml 200 ml 250 ml -675 ml Intake Oral 700 ml IV Total 250 ml Output Urine Total 1750 ml 450 ml 500 ml 675 ml Bladder Scan Volume Amount 498 ml # Bowel Movements 0 0 Result Diagram: 07/19/1741607/20/17409 Objective Remarks GENERAL: Elderly WF, mild sob SKIN: Warm and dry. HEAD: Normocephalic. EYES: No scleral icterus. No injection or drainage. NECK: Supple, trachea midline. No JVD or lymphadenopathy. CARDIOVASCULAR: Regular rate and rhythm without murmurs, gallops, or rubs. RESPIRATORY: Breath sounds equal bilaterally. No accessory muscle use. Decreased chest excursion, exp rhonchi GASTROINTESTINAL: Abdomen soft, non-tender, nondistended. MUSCULOSKELETAL: No cyanosis, or edema. BACK: Nontender without obvious deformity. No CVA tenderness. A/P Assessment and Plan Hypercapnoic RF Severe COPD with ac exac bronchitis Anxiety PLAN: BIPAP at night and PRN IV Solumedrol Cont Abx Aersol nebs Supplement 02 to keep sat 88-92% Tyrone Nugent MD Jul 20, 2017 18:40
[2017-07-20] MEDS: TAMSULOSIN HCL 0.4 MG CAP PO SCH (20:42)
[2017-07-20] MEDS: ENOXAPARIN SODIUM 40 MG/0.4 ML SYRINGE SQ SCH (20:42)
[2017-07-20] MEDS: AZITHROMYCIN INJ 250 MG in SODIUM CHLOR 0.9% 250 ML INJ 250 ML IV SCH (20:45)
[2017-07-21] VITALS (34 sets, daily range): BP systolic 69–139; BP diastolic 42–68; PULSE 76–120; RESP 20–44; TEMP 98.1–99.5; O2SAT 88–100
[2017-07-21] MEDS: CHLORHEXIDINE GLUCONATE 2 % 1 PACK (2 CLOTHS)(taper/protocol) TOPICAL SCH (04:00)
[2017-07-21] MEDS: RESP: ALBUTEROL 2.5 MG/IPRATROPIUM 0.5 MG NEB (SCH) NEB ×6 (04:16→23:46)
[2017-07-21 05:21] LABS: POTASSIUM 3.3 MEQ/L (3.5-5.1)
[2017-07-21 05:27] LABS: BICARBONATE 39.9 MEQ/L (21.0-32.0)
[2017-07-21] MEDS: SODIUM CHLORIDE 0.9% FLUSH 10 ML FLUSH IVF PRN ×2 (06:36→21:31)
[2017-07-21] MEDS: methylPREDNISolone SOD SUCC 125 MG/2 ML VIAL IV PUSH SCH ×3 (06:36→21:31)
[2017-07-21] MEDS: BUDESONIDE-FORMOTEROL 160/4.5 MCG INHALER INH SCH ×2 (07:58→21:31)
[2017-07-21] MEDS: FAMOTIDINE 20 MG/2 ML VIAL IV PUSH SCH ×2 (07:59→21:31)
--- NOTE | 2017-07-21 10:29 | HHI.PR ---
Subjective Remarks Patient has sinus tachycardia 110-120. EKG obtained and reviewed. Had transient hypotension this morning when sitting up in bed - asymptomatic. BP now wnl. Patient wore bipap about 2 hrs last night - said she feels better on NC. Sats good on 2L. Patient still feels dyspneic, not improved from yesterday. Objective Vitals Vital Signs Date Time Temp Pulse Resp B/P (MAP) Pulse Ox O2 Delivery O2 Flow Rate FiO2 07/21/17 08:00 90 Nasal Cannula 1.00 07/21/17 08:00 98.1 114 44 113/52 (72) 90 07/21/17 08:00 104 07/21/17 07:30 95 Nasal Cannula 2.00 07/21/17 07:01 92 20 108/53 (71) 95 07/21/17 05:00 90 Bi-Pap 30 07/21/17 05:00 108 34 93/53 (66) 95 07/21/17 04:46 95 30 07/21/17 04:00 88 07/21/17 04:00 96 Nasal Cannula 2.00 07/21/17 04:00 99.5 88 23 104/47 (66) 98 07/21/17 03:00 92 24 97/42 (60) 95 07/21/17 02:00 76 21 91/46 (61) 96 07/21/17 02:00 76 07/21/17 01:00 90 20 92/45 (61) 95 07/21/17 00:00 98.6 86 22 95/46 (62) 97 07/21/17 00:00 86 07/20/17 23:00 78 19 92/45 (61) 95 07/20/17 22:00 95 Nasal Cannula 4.00 07/20/17 22:00 98 30 84/43 (57) 98 07/20/17 22:00 98 07/20/17 21:50 96 Nasal Cannula 4.00 07/20/17 21:00 94 39 107/60 (76) 96 07/20/17 20:00 108 07/20/17 20:00 93 Bi-Pap 30 07/20/17 20:00 99.0 108 29 95/62 (73) 92 07/20/17 19:29 92 30 07/20/17 19:00 88 Nasal Cannula 4.00 07/20/17 19:00 110 30 81/52 (62) 87 07/20/17 18:00 118 07/20/17 18:00 118 31 79/59 (66) 89 07/20/17 17:00 106 07/20/17 17:00 98.0 106 25 109/58 (75) 91 07/20/17 16:00 106 28 103/52 (69) 90 07/20/17 16:00 106 07/20/17 15:00 104 27 102/53 (69) 94 07/20/17 15:00 104 07/20/17 14:00 94 24 100/53 (69) 95 07/20/17 14:00 94 07/20/17 13:00 108 07/20/17 13:00 108 31 105/49 (67) 93 07/20/17 12:00 104 07/20/17 12:00 104 23 87/45 (59) 93 07/20/17 11:36 106 25 83/51 (62) 89 07/20/17 11:36 106 07/20/17 11:07 110 07/20/17 11:07 110 20 75/49 (58) 94 07/20/17 11:00 114 07/20/17 11:00 114 40 86/56 (66) 89 07/20/17 10:59 93 30 I/O 07/20/17 07/20/17 07/20/17 07/21/17 07/21/17 07/21/17 07:00 15:00 23:00 07:00 15:00 23:00 Intake Total 250 ml 370 ml 100 ml Output Total 675 ml 800 ml 250 ml Balance 250 ml -675 ml -430 ml -150 ml Intake Oral 120 ml 100 ml IV Total 250 ml 250 ml Output Urine Total 675 ml 800 ml 250 ml # Bowel Movements 0 0 0 Result Diagram: 07/19/17 0417 07/21/17 8973 Objective Remarks GENERAL: Well-nourished, well-developed pleasant elderly CF patient. SKIN: Warm and dry. HEAD: Normocephalic. EYES: No scleral icterus. No injection or drainage. NECK: Supple, trachea midline. No JVD or lymphadenopathy. CARDIOVASCULAR: Regular rate and rhythm without murmurs, gallops, or rubs. RESPIRATORY: Pursed lip breathing, mild resp distress. Poor air exchange with prolonged exp phase, b/l lydia wheezing. GASTROINTESTINAL: Abdomen soft, non-tender, nondistended. EXTREMITIES: No cyanosis, or edema. NEUROLOGICAL: Awake, alert, and oriented x 3. Non-focal. A/P Assessment and Plan Acute Resp Failure with hypercapnia and hypoxia - due to COPD exacerbation -ABG yesterday showed respiratory alkalosis. -repeat cxr today -bipap as tolerated -Continue Solu-Medrol, DuoNeb scheduled, Symbicort -Pulmonology following/ Dr. Nugent -BNP was not significantly elevated, 2-D echocardiogram shows preserved ejection fraction, dilated right ventricle. She had some elevation in creatinine Lasix DCed. Patient has chronic pedal edema - add avelina hose. Urinary retention - Post void residual has about half a liter, continue Oswald catheter in for now , she additionally has significant exertional dyspnea -Continue Flomax and minimize any and all anticholinergics Sinus tachycardia - due to COPD exacerbation. cont tele. HTN -Blood pressure running low-cont to hold Norvasc and lisinopril. NS bolus 250 ml x 1, lift fluid restriction DVT prophylaxis with Lovenox 40 mg subcutaneous daily. Nargis Travis MD Jul 21, 2017 10:29
[2017-07-21] MEDS ORDERED: SODIUM CHLOR 0.9% 250 ML INJ 250 ML IV ONE (10:30)
[2017-07-21] MEDS ORDERED: SODIUM CHLOR 0.9% 1000 ML INJ 1,000 ML IV ONE (10:30)
[2017-07-21 11:37] LABS: HEMATOCRIT 33.2 % (35.0-46.0); REVIEW FLAG FINAL
--- NOTE | 2017-07-21 15:53 | HHI.PR ---
Subjective Remarks 77 YOWF with Hypercapnoic RF,COPD exac Did't use BIPAP at night and intermittantally during day time gets sob even on talking Purse lip breathing Gets anxious Objective Vital Signs Vital Signs Date Time Temp Pulse Resp B/P (MAP) Pulse Ox O2 Delivery O2 Flow Rate FiO2 07/21/17 15:01 92 26 124/66 (85) 98 07/21/17 14:01 102 26 132/58 (82) 88 07/21/17 13:01 102 30 139/62 (87) 88 07/21/17 12:01 110 39 119/57 (77) 94 07/21/17 12:00 102 29 94 07/21/17 12:00 102 07/21/17 11:01 104 28 98/51 (67) 91 07/21/17 10:22 106 26 110/52 (71) 92 07/21/17 10:05 118 38 86/48 (61) 92 07/21/17 10:03 118 31 82/52 (62) 92 07/21/17 10:01 116 29 69/44 (52) 91 07/21/17 10:00 116 34 91 07/21/17 08:00 90 Nasal Cannula 1.00 07/21/17 08:00 98.1 114 44 113/52 (72) 90 07/21/17 08:00 104 07/21/17 07:30 95 Nasal Cannula 2.00 07/21/17 07:01 92 20 108/53 (71) 95 07/21/17 05:00 90 Bi-Pap 30 07/21/17 05:00 108 34 93/53 (66) 95 07/21/17 04:46 95 30 07/21/17 04:00 88 07/21/17 04:00 96 Nasal Cannula 2.00 07/21/17 04:00 99.5 88 23 104/47 (66) 98 07/21/17 03:00 92 24 97/42 (60) 95 07/21/17 02:00 76 21 91/46 (61) 96 07/21/17 02:00 76 07/21/17 01:00 90 20 92/45 (61) 95 07/21/17 00:00 98.6 86 22 95/46 (62) 97 07/21/17 00:00 86 07/20/17 23:00 78 19 92/45 (61) 95 07/20/17 22:00 95 Nasal Cannula 4.00 07/20/17 22:00 98 30 84/43 (57) 98 07/20/17 22:00 98 07/20/17 21:50 96 Nasal Cannula 4.00 07/20/17 21:00 94 39 107/60 (76) 96 07/20/17 20:00 108 07/20/17 20:00 93 Bi-Pap 30 07/20/17 20:00 99.0 108 29 95/62 (73) 92 07/20/17 19:29 92 30 07/20/17 19:00 88 Nasal Cannula 4.00 07/20/17 19:00 110 30 81/52 (62) 87 07/20/17 18:00 118 07/20/17 18:00 118 31 79/59 (66) 89 07/20/17 17:00 106 07/20/17 17:00 98.0 106 25 109/58 (75) 91 07/20/17 16:00 106 28 103/52 (69) 90 07/20/17 16:00 106 I/O 07/20/17 07/20/17 07/20/17 07/21/17 07/21/17 07/21/17 07:00 15:00 23:00 07:00 15:00 23:00 Intake Total 250 ml 370 ml 350 ml Output Total 675 ml 800 ml 250 ml Balance 250 ml -675 ml -430 ml 100 ml Intake Oral 120 ml 100 ml IV Total 250 ml 250 ml 250 ml Output Urine Total 675 ml 800 ml 250 ml # Bowel Movements 0 0 0 Result Diagram: 07/21/17 1115 07/21/17 0435 Objective Remarks GENERAL: Elderly WF, mild sob SKIN: Warm and dry. HEAD: Normocephalic. EYES: No scleral icterus. No injection or drainage. NECK: Supple, trachea midline. No JVD or lymphadenopathy. CARDIOVASCULAR: Regular rate and rhythm without murmurs, gallops, or rubs. RESPIRATORY: Breath sounds equal bilaterally. No accessory muscle use. Decreased chest excursion, exp rhonchi GASTROINTESTINAL: Abdomen soft, non-tender, nondistended. MUSCULOSKELETAL: No cyanosis, or edema. BACK: Nontender without obvious deformity. No CVA tenderness. A/P Assessment and Plan Hypercapnoic RF Severe COPD with ac exac bronchitis Anxiety PLAN: BIPAP at night and PRN IV Solumedrol Cont Abx Aersol nebs q 4 hrs and prn Supplement 02 to keep sat 88-92% Tyrone Nugent MD Jul 21, 2017 15:53
--- NOTE | 2017-07-21 18:19 | EKG ---
Date Performed: 07/21/2017 Time Performed: 10:10:47 PTAGE: 77 years EKG: SINUS TACHYCARDIA NONSPECIFIC ST & T-WAVE ABNORMALITY ABNORMAL RHYTHM ECG PREVIOUS TRACING : 07/18/2017 16.46 Compared to prior tracing no significant change DOCTOR: Karen Castro Interpretating Date/Time 07/21/2017 18:18:48
[2017-07-21] MEDS: TAMSULOSIN HCL 0.4 MG CAP PO SCH (21:30)
[2017-07-21] MEDS: AZITHROMYCIN INJ 250 MG in SODIUM CHLOR 0.9% 250 ML INJ 250 ML IV SCH (21:30)
[2017-07-21] MEDS: ENOXAPARIN SODIUM 40 MG/0.4 ML SYRINGE SQ SCH (21:31)
[2017-07-22] VITALS (24 sets, daily range): BP systolic 99–156; BP diastolic 51–77; PULSE 80–124; RESP 19–41; TEMP 97.7–98.6; O2SAT 91–100
[2017-07-22] MEDS: CHLORHEXIDINE GLUCONATE 2 % 1 PACK (2 CLOTHS)(taper/protocol) TOPICAL SCH (01:02)
[2017-07-22] MEDS: RESP: ALBUTEROL 2.5 MG/IPRATROPIUM 0.5 MG NEB (SCH) NEB ×5 (03:24→19:44)
[2017-07-22] MEDS: SODIUM CHLORIDE 0.9% FLUSH 10 ML FLUSH IVF PRN ×4 (06:32→17:10)
[2017-07-22] MEDS: methylPREDNISolone SOD SUCC 125 MG/2 ML VIAL IV PUSH SCH ×4 (06:32→23:37)
[2017-07-22] MEDS: BUDESONIDE-FORMOTEROL 160/4.5 MCG INHALER INH SCH ×2 (07:56→20:46)
[2017-07-22] MEDS: FAMOTIDINE 20 MG/2 ML VIAL IV PUSH SCH (08:00)
--- NOTE | 2017-07-22 09:11 | HHI.PR ---
Subjective Remarks Patient states that she feels better this morning. Stable on 2 L nasal cannula. Patient states that she has a routine where she gets up uses her Symbicort, then uses the DuoNeb. Patient's son is at bedside and states that her purse lip breathing is normal for her. They also state that she has problems with nasal congestion. She cannot use a 90 pack. She does use Mucinex at times and has a nasal spray at home. Breathing problems seem to get worse with nasal congestion. Objective Vitals Vital Signs Date Time Temp Pulse Resp B/P (MAP) Pulse Ox O2 Delivery O2 Flow Rate FiO2 07/22/17 08:01 98.6 124 41 134/63 (86) 91 07/22/17 08:00 98.4 07/22/17 08:00 98 07/22/17 07:37 97 Nasal Cannula 2.50 07/22/17 07:30 85 Nasal Cannula 2.00 07/22/17 07:01 88 20 110/72 (85) 98 07/22/17 06:01 90 29 111/53 (72) 96 07/22/17 05:01 98 34 109/65 (80) 95 07/22/17 04:01 97.8 102 30 122/57 (78) 94 07/22/17 04:01 102 07/22/17 04:00 100 07/22/17 03:01 98 27 99/53 (68) 94 07/22/17 02:01 96 19 133/51 (78) 95 07/22/17 02:00 100 07/22/17 01:01 80 21 112/55 (74) 96 07/22/17 00:01 97.7 110 38 118/62 (80) 92 07/22/17 00:00 104 07/21/17 22:01 104 22 92/57 (69) 98 07/21/17 22:00 104 07/21/17 21:01 104 27 111/56 (74) 97 07/21/17 20:20 99 Nasal Cannula 3.00 07/21/17 20:01 98.6 102 30 132/66 (88) 96 07/21/17 20:00 94 Nasal Cannula 2.00 07/21/17 20:00 104 07/21/17 19:01 92 27 112/57 (75) 99 07/21/17 18:01 92 28 125/60 (81) 100 07/21/17 18:00 92 25 100 07/21/17 17:01 100 26 132/63 (86) 97 07/21/17 17:00 106 30 99 07/21/17 16:01 114 35 122/68 (86) 92 07/21/17 16:00 120 07/21/17 16:00 114 31 92 07/21/17 15:01 92 26 124/66 (85) 98 07/21/17 14:01 102 26 132/58 (82) 88 07/21/17 13:01 102 30 139/62 (87) 88 07/21/17 12:01 110 39 119/57 (77) 94 07/21/17 12:00 102 29 94 07/21/17 12:00 102 07/21/17 11:01 104 28 98/51 (67) 91 07/21/17 10:22 106 26 110/52 (71) 92 07/21/17 10:05 118 38 86/48 (61) 92 07/21/17 10:03 118 31 82/52 (62) 92 07/21/17 10:01 116 29 69/44 (52) 91 07/21/17 10:00 116 34 91 I/O 07/21/17 07/21/17 07/21/17 07/22/17 07/22/17 07/22/17 07:00 15:00 23:00 07:00 15:00 23:00 Intake Total 350 ml 360 ml 300 ml Output Total 250 ml 300 ml 350 ml Balance 100 ml 60 ml -50 ml Intake Oral 100 ml 360 ml 300 ml IV Total 250 ml Output Urine Total 250 ml 300 ml 350 ml # Bowel Movements 0 1 0 Result Diagram: 07/21/17 1115 07/21/17 0435 Objective Remarks GENERAL: Well-nourished, well-developed pleasant elderly CF patient. SKIN: Warm and dry. HEAD: Normocephalic. EYES: No scleral icterus. No injection or drainage. NECK: Supple, trachea midline. No JVD or lymphadenopathy. CARDIOVASCULAR: Regular rate and rhythm without murmurs, gallops, or rubs. RESPIRATORY: Pursed lip breathing. Improved air exchange with decreased expiratory wheezing. GASTROINTESTINAL: Abdomen soft, non-tender, nondistended. EXTREMITIES: No cyanosis, or edema. NEUROLOGICAL: Awake, alert, and oriented x 3. Non-focal. A/P Assessment and Plan Acute Resp Failure with hypercapnia and hypoxia - due to COPD exacerbation -Slow improvement -repeat cxr pending - previous showed possible interstitial edema -bipap as tolerated -Continue Solu-Medrol, DuoNeb scheduled, Symbicort -Pulmonology following/ Dr. Nugent -BNP was not significantly elevated, 2-D echocardiogram shows preserved ejection fraction, dilated right ventricle. She had some elevation in creatinine Lasix DCed. Patient has chronic pedal edema - continue avelina hose. -Get patient up with PT -Decreased urinary frequency secondary to the tachycardia Urinary retention - Post void residual has about half a liter, DC Oswald today and monitor urine output bladder scan is needed discussed with RN -Continue Flomax and minimize any and all anticholinergics Sinus tachycardia - due to COPD exacerbation. cont tele. Decreased DuoNeb's. HTN -Blood pressure running low-cont to hold Norvasc and lisinopril. Status post NS bolus 250 ml x 1, lift fluid restriction. Check BMP today. DVT prophylaxis with Lovenox 40 mg subcutaneous daily. Nargis Travis MD Jul 22, 2017 09:11
[2017-07-22 10:25] LABS: POTASSIUM 3.4 MEQ/L (3.5-5.1)
--- NOTE | 2017-07-22 10:32 | RADRPT ---
EXAM DATE/TIME: 07/22/2017 10:05 [facility] COMPARISON: CHEST SINGLE AP, July 19, 2017, 13:31. INDICATIONS : Short of breath. MEDICAL HISTORY : Chronic obstructive pulmonary disease. Hypertension SURGICAL HISTORY : None. ENCOUNTER: Subsequent ACUITY: 4 - 6 days PAIN SCORE: 0/10 LOCATION: Bilateral chest FINDINGS: A single view of the chest demonstrates the lungs to be symmetrically hyperinflated with no confluent infiltrate. There is blunting of both costophrenic angles concerning for bilateral small effusions. Heart size is normal. Osseous structures are intact. CONCLUSION: 1. Hyperinflation characteristic of some degree of COPD. 2. Possible small bilateral pleural effusions with blunting of the costophrenic angles. Trey Hollingsworth MD on July 22, 2017 at 10:29 Board Certified Radiologist. This report was verified electronically.
[2017-07-22] MEDS: FLUTICASONE PROPIONATE 50 MCG/ACT 16 GM NASAL SPRAY NASAL SCH ×2 (11:22→20:46)
[2017-07-22] MEDS: guaiFENesin E.R. 600 MG TAB PO SCH ×2 (11:22→20:46)
[2017-07-22] MEDS: LORazepam 0.5 MG TAB PO PRN ×2 (11:25→20:46)
--- NOTE | 2017-07-22 18:29 | HHI.PR ---
Subjective Remarks 77 YOWF with Hypercapnoic RF,COPD exac Did't use BIPAP at night and intermittantally during day time gets sob even on talking Purse lip breathing Gets anxious Feels little bettr Anxious to go home Objective Vital Signs Vital Signs Date Time Temp Pulse Resp B/P (MAP) Pulse Ox O2 Delivery O2 Flow Rate FiO2 07/22/17 16:00 98.1 80 26 134/66 (88) 93 07/22/17 15:24 100 Nasal Cannula 2.00 07/22/17 14:01 106 07/22/17 14:01 106 29 128/66 (86) 100 07/22/17 13:01 108 26 140/62 (88) 96 07/22/17 12:00 97.8 96 24 147/60 (89) 97 07/22/17 12:00 96 07/22/17 11:01 98 30 156/71 (99) 07/22/17 10:00 118 28 114/63 (80) 96 07/22/17 10:00 118 07/22/17 09:01 118 34 104/77 (86) 91 07/22/17 08:45 97 Nasal Cannula 3.00 07/22/17 08:01 98.6 124 41 134/63 (86) 91 07/22/17 08:00 98.4 07/22/17 08:00 98 07/22/17 07:37 97 Nasal Cannula 2.50 07/22/17 07:30 85 Nasal Cannula 4.00 07/22/17 07:01 88 20 110/72 (85) 98 07/22/17 06:01 90 29 111/53 (72) 96 07/22/17 05:01 98 34 109/65 (80) 95 07/22/17 04:01 97.8 102 30 122/57 (78) 94 07/22/17 04:01 102 07/22/17 04:00 100 07/22/17 03:01 98 27 99/53 (68) 94 07/22/17 02:01 96 19 133/51 (78) 95 07/22/17 02:00 100 07/22/17 01:01 80 21 112/55 (74) 96 07/22/17 00:01 97.7 110 38 118/62 (80) 92 07/22/17 00:00 104 07/21/17 22:01 104 22 92/57 (69) 98 07/21/17 22:00 104 07/21/17 21:01 104 27 111/56 (74) 97 07/21/17 20:20 99 Nasal Cannula 3.00 07/21/17 20:01 98.6 102 30 132/66 (88) 96 07/21/17 20:00 94 Nasal Cannula 2.00 07/21/17 20:00 104 07/21/17 19:01 92 27 112/57 (75) 99 I/O 07/21/17 07/21/17 07/21/17 07/22/17 07/22/17 07/22/17 07:00 15:00 23:00 07:00 15:00 23:00 Intake Total 350 ml 360 ml 300 ml Output Total 250 ml 300 ml 350 ml Balance 100 ml 60 ml -50 ml Intake Oral 100 ml 360 ml 300 ml IV Total 250 ml Output Urine Total 250 ml 300 ml 350 ml Bladder Scan Volume Amount 141 ml 141 ml # Bowel Movements 0 1 0 1 Result Diagram: 07/21/17 1115 07/22/17 0905 Objective Remarks GENERAL: Elderly WF, mild sob SKIN: Warm and dry. HEAD: Normocephalic. EYES: No scleral icterus. No injection or drainage. NECK: Supple, trachea midline. No JVD or lymphadenopathy. CARDIOVASCULAR: Regular rate and rhythm without murmurs, gallops, or rubs. RESPIRATORY: Breath sounds equal bilaterally. No accessory muscle use. Decreased chest excursion, exp rhonchi GASTROINTESTINAL: Abdomen soft, non-tender, nondistended. MUSCULOSKELETAL: No cyanosis, or edema. BACK: Nontender without obvious deformity. No CVA tenderness. A/P Assessment and Plan Hypercapnoic RF Severe COPD with ac exac bronchitis Anxiety PLAN: BIPAP at night and PRN IV Solumedrol Cont Abx Aersol nebs q 4 hrs and prn Supplement 02 to keep sat 88-92% Symbicort 2 puffs bid with spacer device Tyrone Nugent MD Jul 22, 2017 18:29
[2017-07-22] MEDS: AZITHROMYCIN 250 MG TAB PO SCH (20:46)
[2017-07-22] MEDS: ENOXAPARIN SODIUM 40 MG/0.4 ML SYRINGE SQ SCH (20:46)
[2017-07-22] MEDS: TAMSULOSIN HCL 0.4 MG CAP PO SCH (20:46)
[2017-07-23] VITALS (7 sets, daily range): BP systolic 116–159; BP diastolic 53–86; PULSE 82–117; RESP 20–22; TEMP 96.4–98.1; O2SAT 94–98
[2017-07-23] MEDS: CHLORHEXIDINE GLUCONATE 2 % 1 PACK (2 CLOTHS)(taper/protocol) TOPICAL SCH (03:30)
[2017-07-23] MEDS: methylPREDNISolone SOD SUCC 125 MG/2 ML VIAL IV PUSH SCH (04:36)
[2017-07-23] MEDS: RESP: ALBUTEROL 2.5 MG/IPRATROPIUM 0.5 MG NEB (SCH) NEB ×4 (07:11→19:04)
[2017-07-23] MEDS: PANTOPRAZOLE SOD 20 MG DELAYED RELEASE TAB PO SCH (07:49)
[2017-07-23] MEDS: BUDESONIDE-FORMOTEROL 160/4.5 MCG INHALER INH SCH ×2 (07:49→20:28)
[2017-07-23] MEDS: guaiFENesin E.R. 600 MG TAB PO SCH ×2 (07:49→20:27)
[2017-07-23] MEDS: FLUTICASONE PROPIONATE 50 MCG/ACT 16 GM NASAL SPRAY NASAL SCH ×2 (07:49→20:28)
[2017-07-23] MEDS ORDERED: POTASSIUM CHLORIDE 25 MEQ EFFERVESCENT TAB PO ONE (09:00)
--- NOTE | 2017-07-23 11:46 | HHI.PR ---
Subjective Remarks Patient did not wear her BiPAP last night. States she feels breathing is better on the nasal cannula. She states her breathing feels about back to baseline. She is hoping to go home tomorrow. Objective Vitals Vital Signs Date Time Temp Pulse Resp B/P (MAP) Pulse Ox O2 Delivery O2 Flow Rate FiO2 07/23/17 08:00 96 Nasal Cannula 2.00 07/23/17 08:00 91 07/23/17 08:00 98.1 82 22 137/70 (92) 97 07/23/17 07:12 96 Nasal Cannula 2.00 07/23/17 04:00 96.9 82 20 118/53 (74) 98 07/23/17 00:00 97.9 82 22 116/56 (76) 97 07/22/17 22:00 100 07/22/17 20:00 110 07/22/17 20:00 97.9 112 22 132/64 (86) 94 07/22/17 19:45 94 Nasal Cannula 2.00 07/22/17 19:00 Nasal Cannula 2.00 07/22/17 16:00 98.1 80 26 134/66 (88) 93 07/22/17 15:24 100 Nasal Cannula 2.00 07/22/17 14:01 106 07/22/17 14:01 106 29 128/66 (86) 100 07/22/17 13:01 108 26 140/62 (88) 96 07/22/17 12:00 97.8 96 24 147/60 (89) 97 07/22/17 12:00 96 I/O 07/22/17 07/22/17 07/22/17 07/23/17 07/23/17 07/23/17 07:00 15:00 23:00 07:00 15:00 23:00 Intake Total 300 ml 720 ml 240 ml Output Total 350 ml 200 ml 325 ml Balance -50 ml 520 ml -85 ml Intake Oral 300 ml 720 ml 240 ml Output Urine Total 350 ml 200 ml 325 ml Bladder Scan Volume Amount 141 ml 141 ml # Bowel Movements 0 1 Result Diagram: 07/21/17 1115 07/22/17 09 Objective Remarks GENERAL: Well-nourished, well-developed pleasant elderly CF patient. SKIN: Warm and dry. HEAD: Normocephalic. EYES: No scleral icterus. No injection or drainage. NECK: Supple, trachea midline. No JVD or lymphadenopathy. CARDIOVASCULAR: Regular rate and rhythm without murmurs, gallops, or rubs. RESPIRATORY: Pursed lip breathing. Improved air exchange with decreased expiratory wheezing. GASTROINTESTINAL: Abdomen soft, non-tender, nondistended. EXTREMITIES: No cyanosis, or edema. NEUROLOGICAL: Awake, alert, and oriented x 3. Non-focal. A/P Assessment and Plan Acute Resp Failure with hypercapnia and hypoxia - due to COPD exacerbation -Improved -Chest x-ray July 22 shows hyperinflation, possible small bilateral pleural effusions -bipap as tolerated -Change Solu-Medrol to prednisone, DuoNeb scheduled, Symbicort -Pulmonology following/ Dr. Nugent -BNP was not significantly elevated, 2-D echocardiogram shows preserved ejection fraction, dilated right ventricle. She had some elevation in creatinine Lasix DCed. Patient has chronic pedal edema - continue avelina hose. -Continue PT Urinary retention - resolved. Oswald DC'd 07/22. Sinus tachycardia - due to COPD exacerbation. cont tele. Decreased DuoNeb's. HTN -Blood pressure normal. Status post NS bolus 250 ml x 1 for hypotension on . DVT prophylaxis with Lovenox 40 mg subcutaneous daily. Discharge Planning Discharge planning. Nargis Travis MD Jul 23, 2017 11:46
[2017-07-23] MEDS: predniSONE 20 MG TAB PO SCH ×2 (12:40→20:28)
[2017-07-23] MEDS: LORazepam 0.5 MG TAB PO PRN (13:30)
--- NOTE | 2017-07-23 17:08 | HHI.PR ---
Subjective Remarks 77 YOWF with Hypercapnoic RF,COPD exac Purse lip breathing Gets anxious Breathing better " I hope I can go home in AM" Objective Vital Signs Vital Signs Date Time Temp Pulse Resp B/P (MAP) Pulse Ox O2 Delivery O2 Flow Rate FiO2 07/23/17 17:02 97.9 103 20 149/76 (100) 95 07/23/17 08:00 96 Nasal Cannula 2.00 07/23/17 08:00 91 07/23/17 08:00 98.1 82 22 137/70 (92) 97 07/23/17 07:12 96 Nasal Cannula 2.00 07/23/17 04:00 96.9 82 20 118/53 (74) 98 07/23/17 00:00 97.9 82 22 116/56 (76) 97 07/22/17 22:00 100 07/22/17 20:00 110 07/22/17 20:00 97.9 112 22 132/64 (86) 94 07/22/17 19:45 94 Nasal Cannula 2.00 07/22/17 19:00 Nasal Cannula 2.00 I/O 07/22/17 07/22/17 07/22/17 07/23/17 07/23/17 07/23/17 07:00 15:00 23:00 07:00 15:00 23:00 Intake Total 300 ml 720 ml 240 ml Output Total 350 ml 200 ml 325 ml Balance -50 ml 520 ml -85 ml Intake Oral 300 ml 720 ml 240 ml Output Urine Total 350 ml 200 ml 325 ml Bladder Scan Volume Amount 141 ml 141 ml # Bowel Movements 0 1 Result Diagram: 07/21/17 1115 07/22/17 0905 Objective Remarks GENERAL: Elderly WF, mild sob SKIN: Warm and dry. HEAD: Normocephalic. EYES: No scleral icterus. No injection or drainage. NECK: Supple, trachea midline. No JVD or lymphadenopathy. CARDIOVASCULAR: Regular rate and rhythm without murmurs, gallops, or rubs. RESPIRATORY: Breath sounds equal bilaterally. No accessory muscle use. Decreased chest excursion, exp rhonchi GASTROINTESTINAL: Abdomen soft, non-tender, nondistended. MUSCULOSKELETAL: No cyanosis, or edema. BACK: Nontender without obvious deformity. No CVA tenderness. A/P Assessment and Plan Hypercapnoic RF Severe COPD with ac exac bronchitis Anxiety PLAN: DC Solumedrol Pred 20 mg bid Cont Abx Aersol nebs q 4 hrs and prn Supplement 02 to keep sat 88-92% Symbicort 2 puffs bid with spacer device DC plans for home Tyrone Nugent MD Jul 23, 2017 17:08
[2017-07-23] MEDS: AZITHROMYCIN 250 MG TAB PO SCH (20:27)
[2017-07-23] MEDS: TAMSULOSIN HCL 0.4 MG CAP PO SCH (20:27)
[2017-07-23] MEDS: ENOXAPARIN SODIUM 40 MG/0.4 ML SYRINGE SQ SCH (20:28)
[2017-07-24] VITALS: BP 106/57; PULSE 94; RESP 20; TEMP 98.1; O2SAT 94
[2017-07-24 04:00] VITALS: BP 112/56; PULSE 76; RESP 16; TEMP 98.3; O2SAT 97
[2017-07-24] MEDS: RESP: ALBUTEROL 2.5 MG/IPRATROPIUM 0.5 MG NEB (SCH) NEB ×2 (07:39→11:48)
[2017-07-24 07:41] VITALS: O2SAT 94
[2017-07-24 07:50] VITALS: BP 141/65; PULSE 101; RESP 20; TEMP 97.6; O2SAT 92
[2017-07-24 08:00] VITALS: PULSE 110
[2017-07-24] MEDS: BUDESONIDE-FORMOTEROL 160/4.5 MCG INHALER INH SCH (08:36)
[2017-07-24] MEDS: guaiFENesin E.R. 600 MG TAB PO SCH (08:38)
[2017-07-24] MEDS: PANTOPRAZOLE SOD 20 MG DELAYED RELEASE TAB PO SCH (08:38)
[2017-07-24] MEDS: predniSONE 20 MG TAB PO SCH (08:38)
[2017-07-24] MEDS: FLUTICASONE PROPIONATE 50 MCG/ACT 16 GM NASAL SPRAY NASAL SCH (08:38)
[2017-07-24] MEDS: LORazepam 0.5 MG TAB PO PRN (08:38)
[2017-07-24 11:50] VITALS: BP 121/58; PULSE 102; RESP 20; TEMP 97; O2SAT 92
--- NOTE | 2017-07-24 12:57 | HHI.DS ---
Discharge Summary Admission Date Jul 18, 2017 at 17:58 Discharge Date: Jul 24, 2017 Admitting Diagnosis Respiratory distress, CHF exacerbation, COPD exacerbation (1) COPD exacerbation ICD Code: J44.1 - COPD exacerbation Status: Acute (2) Hypoxia ICD Code: R09.02 - Hypoxemia Status: Acute (3) Hypertension ICD Code: I10 - Hypertension Status: Acute Procedures None Brief History - From Admission History was limited as the patient is on BiPAP and has obvious dyspnea. Limited history from son. Patient apparently was in her usual state of health until about a few days ago when she began developing a gradual onset of shortness of breath. Her son brought her to the ER tonight because he was told by the patient's sister that she is "ready to come to the hospital." She does have chronic lower extremity edema which she says admits by nodding stating that it did get worse recently and her legs which are swollen now has never been this swollen in the past. Patient is actually able to verbalize a little bit and says that she had some chest tightness but denies any frankie chest pain or any frankie fevers. No nausea vomiting or diarrhea reported. Patient reports being compliant with all of her medications. She denies any diagnosis of heart failure but does admit to having COPD. she does follow-up with pulmonology, wears 2L of O2 at home. CBC/BMP: 07/21/17 1115 07/22/17 0905 Significant Findings Laboratory Tests Test 07/22/17 09:05 Blood Urea Nitrogen 26 MG/DL (7-18) Creatinine 1.20 MG/DL (0.50-1.00) Random Glucose 177 MG/DL (74-106) Calcium Level 8.3 MG/DL (8.5-10.1) Potassium Level 3.4 MEQ/L (3.5-5.1) Carbon Dioxide Level 40.0 MEQ/L (21.0-32.0) Estimat Glomerular Filtration Rate 44 ML/MIN (>89) Imaging Last Impressions Chest X-Ray 07/22/17 0000 Signed Impressions: Service Date/Time: July 10:05 - CONCLUSION: 1. Hyperinflation characteristic of some degree of COPD. 2. Possible small bilateral pleural effusions with blunting of the costophrenic angles. Trey Hollingsworth MD PE at Discharge GENERAL: Well-nourished, well-developed pleasant elderly CF patient. SKIN: Warm and dry. HEAD: Normocephalic. EYES: No scleral icterus. No injection or drainage. NECK: Supple, trachea midline. No JVD or lymphadenopathy. CARDIOVASCULAR: Regular rate and rhythm without murmurs, gallops, or rubs. RESPIRATORY: Pursed lip breathing, at baseline. Improved air exchange, no wheezing. GASTROINTESTINAL: Abdomen soft, non-tender, nondistended. EXTREMITIES: No cyanosis, or edema. NEUROLOGICAL: Awake, alert, and oriented x 3. Non-focal. Pt update on day of discharge Follow up COPD exacerbation. Patient seen and examined, lying in bed on supplemental O2, with breathing back to baseline. Feels better. Lungs are clear. Eager to go home today Hospital Course Acute Resp Failure with hypercapnia and hypoxia secondary to COPD exacerbation. Was placed on BIPAP with improvement in ABG seen. CXR upon presentation showed no acute cardiopulmonary abnormality but did show mild interstitial edema and small bilateral effusions with blunting of the costophrenic angles. Pulmonology was consulted and saw patient while hospitalized. Was given IV steroids as well as PO. Also given IV Azithromycin and then switched to PO. Duonebs were ordered and supplemental O2, Symbicort also ordered. BNP was not significantly elevated , patient was also diuresed with Lasix. Echocardiogram was performed showing preserved ejection fraction, dilated right ventricle. PT worked with patient while hospitalized and recommending [facility] PT. Pt Condition on Discharge: Stable Discharge Disposition: Disch w/ Home Health Serv Discharge Time: > 30 minutes Discharge Instructions DIET: Follow Instructions for: Heart Healthy Diet Speech Therapy-Diet Recommends: Regular Activities you can perform: Regular-No Restrictions Follow up Referrals: Pulmonology - 1 Week with Tyrone Nugent MD New Medications: Prednisone (Prednisone) 10 Mg Tab 10 MG PO DIRECTED for copd, #19 TAB 0 Refills Take 2 PO BID for 3 days, then 1 PO BID for 3 days, then 1 daily for 3 days, then stop. Azithromycin (Azithromycin) 250 Mg Tab 250 MG PO HS for copd, #3 TAB Continued Medications: Albuterol 18 GM Inh (Ventolin Hfa 18 GM Inh) 90 Mcg/Act Aer 2 PUFF INH Q4H PRN for SHORTNESS OF BREATH, #1 INHALER 0 Refills Albuterol Neb (Albuterol Neb) 2.5 Mg/0.5 Ml Neb 2.5 MG NEB Q6HR NEB, BOX Note: The Albuterol Sulfate Inhalation Solution is concentrated and must be diluted. Read complete instructions carefully before using. Amlodipine (Amlodipine) 5 Mg Tab 5 MG PO HS for Blood Pressure Management, #30 TAB 0 Refills Budesonide-Formoterol Inh (Symbicort Inh) 160-4.5 Mcg/Act Aero 2 PUFF INH Q12HR, #1 INHALER 0 Refills Furosemide (Lasix) 20 Mg Tab 10 MG PO DAILY, #30 TAB 0 Refills Lisinopril (Lisinopril) 20 Mg Tab 20 MG PO DAILY, #30 TAB 0 Refills [O2] () 2 LITER EACH NARE CONTINUOUS Additional Information This note was transcribed by nishi Rowe. I, Dr. Nargis Travis personally performed the history, physical exam, and medical decision making; and confirmed the accuracy of the information in the transcribed note. Authenticated by Dr. Nargis Travis on 07/24/17 at 13:32. Mercy Rowe Jul 24, 2017 12:57 Nargis Travis MD Jul 24, 2017 13:33
[2017-07-24] MEDS ORDERED: AZIT250T3 PO (12:58)
[2017-07-24] MEDS ORDERED: PRED10 PO (12:58)
--- NOTE | 2017-07-24 12:59 | HHI.FF ---
Face to Face Verification Diagnosis: (1) Shortness of breath (2) COPD exacerbation Physical Therapy Order: Evaluate and Treat Home Health Nursing Order: Medical education Oxygen administration education Nursing assessment with vital signs I have seen patient Natasha Naqvi on 07/24/17. My clinical findings support the need for the requested home health care services because: Patient has SOB Deconditioned w/ increased weakness I certify that my clinical findings support that this patient is homebound because: Hx COPD- exertion dyspnea/weakness Need for psychosocial assistance Nargis Travis MD Jul 24, 2017 12:59
== END 2017-07-24 14:09 | disposition home health service (06) | DRG 189 ==
LOC: PHED 16:38 → PHEDA 17:58 → PHICU 20:20 → PH3A 07-23 12:10
PROVIDERS: ADMIT Family Medicine; ATTEND Family Medicine
PROC: 5A09457 Assistance with Respiratory Ventilation, 24-96 Consecutive Hours, Continuous Positive Airway Pressure (ICD-10-PCS; principal; 2017-07-18)
DX: J96.01 Acute respiratory failure with hypoxia (principal); Z99.81 Dependence on supplemental oxygen; J44.1 Chronic obstructive pulmonary disease with (acute) exacerbation; J96.02 Acute respiratory failure with hypercapnia; G47.30 Sleep apnea, unspecified; I10 Essential (primary) hypertension; M79.89 Other specified soft tissue disorders; M19.90 Unspecified osteoarthritis, unspecified site; R33.9 Retention of urine, unspecified; R00.0 Tachycardia, unspecified; F41.9 Anxiety disorder, unspecified; Z87.891 Personal history of nicotine dependence
CPT/HCPCS: 36600; 71010; 80048; 81001; 82550; 82552; 82805; 83880; 84484; 85014; 85018; 85025; 85610; 87040; 87641; 93005; 93306; 94002; 94003; 94640; 94664; 96374; J0456; J1650; J1940; J2930; J7050; J7512; J7613